=== PATIENT | female | born 1970 | race Caucasian/White ===

== ENCOUNTER → 2023-08-08 17:29 | Outpatient (REF) | payer OTHER, SELFPAY | LOC: WDC 17:29 | PROVIDERS: ATTENDING PHYSICIAN Physician Assistant Medical | DX: Z12.31 Encounter for screening mammogram for malignant neoplasm of breast (principal) | CPT/HCPCS: 77063; 77067 ==

== ENCOUNTER → 2023-10-03 14:42 | Outpatient (REF) | payer OTHER, SELFPAY | LOC: PAVMRI 14:42 | PROVIDERS: ATTENDING PHYSICIAN Obstetrics & Gynecology Gynecology; FAMILY PHYSICIAN Physician Assistant Medical | DX: N83.201 Unspecified ovarian cyst, right side (principal) | CPT/HCPCS: 72197; A9575 ==

== ENCOUNTER → 2023-11-04 13:50 | Outpatient (REF) | payer OTHER, SELFPAY | LOC: WDC 13:50 | PROVIDERS: ATTENDING PHYSICIAN Physician Assistant Medical | DX: R92.2 Inconclusive mammogram (principal) | CPT/HCPCS: 76641 ==

== ENCOUNTER → 2024-08-11 15:55 | Outpatient (REF) | payer OTHER, SELFPAY | LOC: WDC 15:55 | PROVIDERS: ATTENDING PHYSICIAN Physician Assistant Medical | DX: R92.2 Inconclusive mammogram (principal); Z12.31 Encounter for screening mammogram for malignant neoplasm of breast | CPT/HCPCS: 77063; 77067 ==